=== PATIENT | female | born 1960 | race Caucasian/White ===

== ENCOUNTER 2016-08-04 01:40 | Day surgery (SDC) | payer OTHER ==
[~2016-08-04] VITALS: Ht 147.3 cm; Wt 55.0 kg
[~2016-08-04 01:40] MED LIST: AMLO5TAB2 PO; FOLI1TAB18 PO; GABA-500 PO; LISI1TAB9 PO; LORA0.5T PO; ONDA-53 PO; OXYC5CAP4 PO; VARE0.5T PO
[2016-08-04] MEDS ORDERED: Sodium Chloride LOK Flush 10 mL Syringe IV PRN (06:00)
[2016-08-04] MEDS ORDERED: fentaNYL-PF 50 mCg/mL 2 mL Inj IVPUSH PRN (06:00)
[2016-08-04] MEDS ORDERED: 0.9% Sodium Chloride 1,000 ML IV SCH (06:00)
[2016-08-04 11:01] VITALS: BP 158/101; PULSE 113; RESP 16; O2SAT 100
[2016-08-04 12:30] VITALS: BP 129/76; PULSE 94; RESP 16; O2SAT 98
[2016-08-04 12:40] VITALS: BP 131/78; PULSE 91; RESP 16; O2SAT 98
[2016-08-04 12:49] VITALS: BP 119/87; PULSE 98; RESP 14; O2SAT 100
--- NOTE | 2016-08-04 23:17 | ENDO ---
[address] [address] ENDOSCOPY PROCEDURE PATIENT: ALYSON RODRIGES : 1960 MR#: [id number] ADMIT: 08/04/2016 JOB ID: [id number] DATE: 08/04/2016 PROCEDURE: Colonoscopy. INDICATIONS: A 55-year-old female with a personal history of adenomatous colon polyps. She has had a prior sigmoid anastomosis for diverticular disease. EQUIPMENT: PCF H 190 L. SEDATION: 4 mg Versed and 100 mcg fentanyl. COMPLICATIONS: None identified. BOWEL PREPARATION: Fair, adequate exam. PROCEDURE INFORMATION: After the risks and benefits were explained, written and verbal informed consent was obtained. The patient was brought into the endoscopy suite and placed into the left lateral decubitus position. Sedation was achieved using the above-stated medications with the addition of oxygen via nasal cannula. A digital rectal examination was accomplished and did not elicit any obvious anorectal pathology. The scope was introduced into the rectum and advanced to the cecum as identified by the appendiceal orifice and ileocecal valve. The scope was slowly withdrawn to carefully examine the mucosa for any defects or lesions. Multiple direct views were made through the dentate line for exclusion of pathology. The colon was decompressed. The scope removed from the patient who tolerated the procedure well. FINDINGS: The sigmoid anastomosis which was an end-to-side anastomosis was again identified. I did not see any inflammatory foreign body reaction at this time around and no significant polyps worthy of biopsy. Everything appeared widely patent. Throughout the remainder of the colon, I did not see any significant polyps or mass lesions. There were some scattered diverticula in the left colon again. Mild internal hemorrhoids with hypertrophied anal papilla. ENDOSCOPIC DIAGNOSES: 1. Patent anastomosis. 2. Diverticulosis. 3. Hemorrhoids. RECOMMENDATIONS: Repeat colonoscopy in five years' time considering personal history of adenomatous colon polyps.
[2016-08-13] MEDS ORDERED: GABA-500 PO (12:01)
[2016-08-13] MEDS ORDERED: LETR2.5T4 PO (12:01)
== END 2016-08-04 23:59 | disposition home or self-care (01) ==
LOC: END 01:40
PROVIDERS: ATTEND Internal Medicine Gastroenterology
PROC: 0DJD8ZZ Inspection of Lower Intestinal Tract, Via Natural or Artificial Opening Endoscopic (ICD-10-PCS; principal; 2016-08-04 11:30)
DX: Z12.11 Encounter for screening for malignant neoplasm of colon (principal); Z86.010 Personal history of colon polyps; Z98.0 Intestinal bypass and anastomosis status; K57.30 Diverticulosis of large intestine without perforation or abscess without bleeding; K64.8 Other hemorrhoids; Z85.3 Personal history of malignant neoplasm of breast
CPT/HCPCS: G0105; G0500; J7030